=== PATIENT | female | born 1975 | race Caucasian/White ===

== ENCOUNTER 2017-10-08 14:13 | Inpatient (IN) | payer MEDICAID ==
[~2017-10-08] VITALS: Ht 160 cm; Wt 115.8 kg
[~2017-10-08 14:13] MED LIST: CLINDAMYCIN HC300 MG PO; LAC PO; LEVAQUIN750 MG PO
[2017-10-08 16:46] LABS: CALCIUM 9.1 mg/dL (8.5-10.1); CREATININE SERUM 1.2 mg/dL (0.6-1.0); POTASSIUM SERUM 3.4 mmol/L (3.5-5.1)
[2017-10-08 16:52] LABS: ALBUMIN 3.1 g/dL (3.4-5.0); BASOPHIL % 0.3 % (0-2); BILIRUBIN TOTAL 0.7 mg/dL (0.20-1.00); PLATELET COUNT 251 x10^3mcL (130-400); TOTAL PROTEIN, SERUM 8.4 g/dL (6.4-8.2)
[2017-10-08 16:55] LABS: microscopic required? YES; urine erythrocyte 1+ (NEGATIVE)
[2017-10-08 19:38] LABS: AMPHETAMINE QUAL UR NONE DETECTED (NEG <=1000)
[2017-10-08 19:41] LABS: T3 TOTAL 0.77 ng/mL
[2017-10-08 19:43] LABS: MAGNESIUM 2.2 mg/dL (1.8-2.4); PHOSPHOROUS 3.1 mg/dL (2.5-4.9)
[2017-10-08 19:44] LABS: CHOLESTEROL/HDL RATIO 4.6
[2017-10-08 19:51] LABS: FREE T4 1.18 ng/dL (0.76-1.46); FREE THYROXINE INDEX 2.9 ug/dL (1.4-4.5); T4(THYROXINE) 8.7 ug/dL (4.7-13.3)
[2017-10-08 20:22] VITALS: BP 133/74
[2017-10-09 04:51] VITALS: BP 124/72; BP 146/82
[2017-10-09 06:15] LABS: BASOPHIL % 0.2 % (0-2); PLATELET COUNT 229 x10^3mcL (130-400)
[2017-10-09 06:21] LABS: CALCIUM 9.1 mg/dL (8.5-10.1); CARBON DIOXIDE 30.1 mmol/L (21-32); CHLORIDE SERUM 103 mmol/L (98-107); GFR1 > 60 mL/min; GLUCOSE SERUM 126 mg/dL (74-106); POTASSIUM SERUM 3.9 mmol/L (3.5-5.1); SODIUM SERUM 140 mmol/L (136-145)
[2017-10-09 06:56] LABS: RED CELL DISTRIBUTION WIDTH 16.2 % (11.5-14.5)
[2017-10-09 10:02] VITALS: BP 117/79
[2017-10-09 17:13] VITALS: BP 126/66
[2017-10-09 21:31] VITALS: BP 99/57
[2017-10-10 05:42] VITALS: BP 122/73
[2017-10-10 06:38] LABS: CARBON DIOXIDE 26.4 mmol/L (21-32); CHLORIDE SERUM 102 mmol/L (98-107); CREATININE SERUM 0.8 mg/dL (0.6-1.0); GFR1 > 60 mL/min; GLUCOSE SERUM 133 mg/dL (74-106); PHOSPHOROUS 3.7 mg/dL (2.5-4.9); POTASSIUM SERUM 3.6 mmol/L (3.5-5.1); SODIUM SERUM 138 mmol/L (136-145)
[2017-10-10 06:56] LABS: BASOPHIL % 0.4 % (0-2); PLATELET COUNT 274 x10^3mcL (130-400)
[2017-10-10 07:21] LABS: RED CELL DISTRIBUTION WIDTH 16.5 % (11.5-14.5)
[2017-10-10 09:11] VITALS: BP 129/75
[2017-10-10] MEDS ORDERED: LEVAQUIN750 MG PO (12:46)
[2017-10-10] MEDS ORDERED: LAC PO (12:49)
[2017-10-10] MEDS ORDERED: CLINDAMYCIN HC300 MG PO (12:49)
[2017-10-10 12:55] VITALS: BP 129/75
[2017-10-10 13:50] VITALS: BP 140/80
== END 2017-10-10 14:53 | disposition home or self-care (01) | DRG 720 ==
LOC: ED 14:13 → DU 18:26 → MU 18:26 → DU 19:30 → MU 10-09 11:35
PROVIDERS: Emergency Medicine; ADMIT Family Medicine
PROC: 0JBN0ZZ Excision of Right Lower Leg Subcutaneous Tissue and Fascia, Open Approach (ICD-10-PCS; principal; 2017-10-09)
DX: A41.9 Sepsis, unspecified organism (principal); N17.0 Acute kidney failure with tubular necrosis; L03.115 Cellulitis of right lower limb; Z68.42 Body mass index [BMI] 45.0-49.9, adult; L97.818 Non-pressure chronic ulcer of other part of right lower leg with other specified severity; E44.1 Mild protein-calorie malnutrition; N39.0 Urinary tract infection, site not specified; R65.20 Severe sepsis without septic shock; E66.01 Morbid (severe) obesity due to excess calories; E87.6 Hypokalemia; E78.5 Hyperlipidemia, unspecified; E78.2 Mixed hyperlipidemia; R80.9 Proteinuria, unspecified; F17.210 Nicotine dependence, cigarettes, uncomplicated
CPT/HCPCS: 82962; 83880; 84439; 90658; J1644; J1956; J3370; J3490; J7030; J7050; Q0092

== ENCOUNTER 2018-09-01 16:52 | Emergency (ER) | payer MEDICAID ==
[~2018-09-01] VITALS: Ht 165.1 cm; Wt 116.1 kg
[2018-09-01 17:14] VITALS: Ht 165.1 cm; Wt 116.1 kg
[2018-09-01 19:42] LABS: PLATELET COUNT 273 x10^3mcL (130-400)
[2018-09-01 19:43] LABS: RED CELL DISTRIBUTION WIDTH 16.4 % (11.5-14.5)
[2018-09-01 19:51] LABS: CALCIUM 8.8 mg/dL (8.5-10.1); CARBON DIOXIDE 28.6 mmol/L (21-32); CHLORIDE SERUM 104 mmol/L (98-107); CREATININE SERUM 0.8 mg/dL (0.6-1.0); GFR1 > 60 mL/min; GLUCOSE SERUM 122 mg/dL (74-106); POTASSIUM SERUM 3.8 mmol/L (3.5-5.1); SODIUM SERUM 138 mmol/L (136-145)
[2018-09-01 19:55] LABS: ALBUMIN 3.4 g/dL (3.4-5.0); ALKALINE PHOSPHATASE 96 U/L (46-116); ALT/SGPT 20 U/L (14-59); AST/SGOT 14 U/L (15-37); BILIRUBIN TOTAL 0.3 mg/dL (0.20-1.00); LIPASE 105 IU/L (73-393); TOTAL PROTEIN, SERUM 7.9 g/dL (6.4-8.2)
[2018-09-01 20:46] LABS: microscopic required? YES; urine erythrocyte 2+ (NEGATIVE)
[2018-09-01 21:56] VITALS: BP 144/67
== END 2018-09-01 21:56 | disposition home or self-care (01) ==
LOC: ED 16:52
PROVIDERS: Emergency Medicine
DX: N20.0 Calculus of kidney (principal); F17.210 Nicotine dependence, cigarettes, uncomplicated; E66.01 Morbid (severe) obesity due to excess calories; Z68.41 Body mass index [BMI] 40.0-44.9, adult
CPT/HCPCS: 99406; J1885; J2405